=== PATIENT | male | born 1990 | race Caucasian/White ===

== ENCOUNTER 2018-06-19 09:50 | Day surgery (SDC) | payer BC ==
[~2018-06-19 09:50] MED LIST: CEFAZOLIN 2 GM/50 ML (PMX) 50 ML IVPB
[2018-06-19] MEDS: SOD CHLORIDE 0.9% 1,000 ML IV (10:53)
[2018-06-19] MEDS ORDERED: GLYCOPYRROLATE 0.4 MG INJ (11:22)
[2018-06-19] MEDS ORDERED: ONDANSETRON 4 MG INJ (11:22)
[2018-06-19] MEDS ORDERED: PROPOFOL 20 ML (11:22)
[2018-06-19] MEDS ORDERED: MIDAZOLAM 1 MG/ML 2 ML INJ (11:22)
[2018-06-19] MEDS ORDERED: ROCURONIUM 50 MG INJ (11:22)
[2018-06-19] MEDS ORDERED: METOCLOPRAMIDE 10 MG INJ (11:22)
[2018-06-19] MEDS ORDERED: NEOSTIGMINE 3 MG/3 ML SYRINGE (11:22)
[2018-06-19] MEDS ORDERED: KETOROLAC 30 MG INJ (11:24)
[2018-06-19] MEDS ORDERED: KETOROLAC 30 MG INJ IV ×2 (11:30→12:30)
[2018-06-19] MEDS ORDERED: OXYCODONE/ACETAMINOPHEN (5/325) TAB PO ×2 (11:30)
[2018-06-19] MEDS ORDERED: FENTAnyl 50 MCG/ML VIAL IV ×3 (11:30)
[2018-06-19] MEDS ORDERED: MEPERIDINE 25 MG INJ IV (11:30)
[2018-06-19] MEDS ORDERED: DIPHENHYDRAMINE 50 MG INJ IV (11:30)
[2018-06-19] MEDS ORDERED: HYDROmorphONE 1 MG/5 ML IV SYRINGE IV ×3 (11:30)
[2018-06-19] MEDS ORDERED: CEFAZOLIN 1 GM INJ (11:37)
[2018-06-19] MEDS: BUPIVACAINE 0.25%/EPI (SDV) 30 ML INJ (12:24)
[2018-06-19] MEDS: BACITRACIN/POLYMYXIN 28.35 GM OINT TOP (12:24)
[2018-06-19] MEDS ORDERED: HYDROCODONE/APAP (5/325) TAB PO (12:30)
[2018-06-19] MEDS ORDERED: IBUPROFEN 600 MG TAB PO (12:30)
[2018-06-19] MEDS: HYDROCODONE/APAP (5/325) TAB PO (12:54)
[2018-06-19] MEDS: ONDANSETRON 4 MG INJ IV (12:55)
== END 2018-06-19 13:55 | disposition home or self-care (01) ==
LOC: SDS 09:50
DX: K64.4 Residual hemorrhoidal skin tags (principal)
CPT/HCPCS: 46924; 88305